=== PATIENT | female | born 1995 | race Caucasian/White ===

== ENCOUNTER 2023-07-16 15:22 | Emergency (ER) | payer OTHER ==
[2023-07-16 15:35] VITALS: TEMP 98.8; BMI 16.9
[2023-07-16] MEDS ORDERED: predniSONE 10 MG TABLET (UD) PO ONE (17:31)
[2023-07-16] MEDS ORDERED: ACETAMINOPHEN 500 MG TABLET (FP) PO ONE (17:33)
[2023-07-16] MEDS ORDERED: ACETAMINOPHEN 500 MG TABLET (FP) ONE (17:35)
[2023-07-16] MEDS ORDERED: predniSONE 20 MG TABLET (UD) ONE (17:35)
[2023-07-16] MEDS ORDERED: predniSONE 10 MG TABLET (UD) ONE (17:35)
[2023-07-16 18:46] VITALS: BP 95/61; PULSE 104; RESP 20
== END 2023-07-16 19:09 | disposition home or self-care (01) ==
LOC: JERFT 15:22
DX: R05.9 Cough, unspecified (principal); R09.81 Nasal congestion; R68.83 Chills (without fever); J02.9 Acute pharyngitis, unspecified; J06.9 Acute upper respiratory infection, unspecified; J10.1 Influenza due to other identified influenza virus with other respiratory manifestations; Z20.822 Contact with and (suspected) exposure to COVID-19
CPT/HCPCS: 0241U-QW; 71046-TC-FY; 87651; 99284-25